=== PATIENT | male | born 1975 | race Caucasian/White ===

== ENCOUNTER 2018-04-16 14:49 | Emergency (ER) | payer OTHER ==
[~2018-04-16] VITALS: Ht 185.4 cm; Wt 103.4 kg
[2018-04-16 14:50] VITALS: BP_SYST 129
[2018-04-16 16:25] VITALS: BP_SYST 124
== END 2018-04-16 16:25 | disposition home or self-care (01) ==
LOC: SED 14:49
DX: S16.1XXA Strain of muscle, fascia and tendon at neck level, initial encounter (principal); S09.90XA Unspecified injury of head, initial encounter; F17.210 Nicotine dependence, cigarettes, uncomplicated; R03.0 Elevated blood-pressure reading, without diagnosis of hypertension; Z90.89 Acquired absence of other organs; V43.52XA Car driver injured in collision with other type car in traffic accident, initial encounter; Y93.89 Activity, other specified; Y92.488 Other paved roadways as the place of occurrence of the external cause; Y99.8 Other external cause status
CPT/HCPCS: 70450-TC; 72125-TC; 99284

== ENCOUNTER 2022-08-11 21:20 | Emergency (ER) | payer BC, OTHER ==
[~2022-08-11] VITALS: Ht 182.9 cm; Wt 124.3 kg
[2022-08-11 21:31] VITALS: BP_SYST 124
[2022-08-11] MEDS ORDERED: NACL 0.9% 1,000 ML IV ONE (21:45)
[2022-08-11 22:25] LABS: BASOPHILS # (AUTO) 0.1 K/uL (0.0-0.2); BASOPHILS % (AUTO) 0.8 % (0.0-2.0); EOSINOPHILS # (AUTO) 0.2 K/uL (0.0-0.4); EOSINOPHILS % (AUTO) 3.3 % (0.0-4.0); HEMOGLOBIN 14.1 g/dL (14.0-18.0); LYMPHOCYTES # (AUTO) 2.4 K/uL (1.0-5.5); LYMPHOCYTES % (AUTO) 30.9 % (20.5-51.5); MEAN CORPUSCULAR HEMOGLOBIN 31 pg (27-31); MEAN CORPUSCULAR HGB CONC 35 % (32-36); MEAN CORPUSCULAR VOLUME 88 fL (79.0-98.0); MONOCYTES # (AUTO) 0.8 K/uL (0.0-1.0); MONOCYTES % (AUTO) 9.9 % (1.7-9.3); NEUTROPHILS # (AUTO) 4.2 K/uL (1.8-7.7); NEUTROPHILS % (AUTO) 55.1 % (40.0-70.0); PLATELET COUNT (AUTO) 244 K/uL (130-430); RED BLOOD CELL COUNT(AUTO) 4.57 MIL/uL (4.2-6.2); RED CELL DISTRIBUTION WIDTH 13.2 % (9.0-15.0); WHITE BLOOD COUNT (AUTO) 7.6 K/uL (4.8-10.8)
[2022-08-11 22:47] LABS: CALCIUM 10.2 mg/dL (8.4-11.0); CREATININE 0.96 mg/dL (0.55-1.30)
[2022-08-11 23:01] LABS: FREE T4 (FREE THYROXINE) 1.1 ng/dl (0.8-1.5); PHOSPHORUS 3.8 mg/dL (2.7-4.5); THYROID STIMULATING HORMONE 1.39 uIu/mL (0.36-3.74); TOTAL BILIRUBIN 0.3 mg/dL (0.0-1.0)
[2022-08-12 00:59] LABS: BILIRUBIN,URINE NEGATIVE (NEGATIVE); BLOOD, URINE NEGATIVE (NEGATIVE); CLARITY/URINE CLEAR (CLEAR); COLOR,URINE YELLOW (YELLOW); GLUCOSE,URINE NEGATIVE (NEGATIVE); KETONES,URINE NEGATIVE (NEGATIVE); LEUKOCYTE ESTERASE ,URINE NEGATIVE (NEGATIVE); NITRITE, URINE NEGATIVE (NEGATIVE); PROTEIN URINE NEGATIVE (NEGATIVE); UROBILINOGEN,URINE 0.2 (0.2-1.0)
[2022-08-12 01:17] LABS: BARBITURATE, URINE NEGATIVE (NEG <=200); METHAMPHETAMINES SCREEN,URINE NEGATIVE (NEG <=500); URINE AMPHETAMINE NEGATIVE (NEG <=500); URINE METHADONE NEGATIVE (NEG <=200)
[2022-08-12 01:18] LABS: BENZODIAZEPINE, URINE NEGATIVE (NEG <=150); CANNABINOID, URINE NEGATIVE (NEG <=50); COCAINE, URINE NEGATIVE (NEG <=150); OPIATE, URINE NEGATIVE (NEG <=100); PHENCYCLIDINE SCREEN,URINE NEGATIVE (NEG <=25); UR TRICYCLIC ANTIDEPRESSANTS NEGATIVE (NEG <=300); URINE OXYCODONE SCREEN NEGATIVE (NEG <=100); URINE PROPOXYPHENE SCREEN NEGATIVE (NEG <=300)
[2022-08-12 03:14] VITALS: BP_SYST 139
== END 2022-08-12 03:14 | disposition home or self-care (01) ==
LOC: SED 21:20
DX: F11.23 Opioid dependence with withdrawal (principal); R53.1 Weakness; R20.2 Paresthesia of skin; R00.2 Palpitations; I10 Essential (primary) hypertension; Z79.899 Other long term (current) drug therapy; Z20.822 Contact with and (suspected) exposure to COVID-19
CPT/HCPCS: 99285; 96360; 71045; 87426; 80307; 80053; 83880; 84439; 83690; 83735; 84100; 84443; 85025; 85379; 87040; 84484; 36415; 93005; 83605; 87804 ×2; 81003; J7030

== ENCOUNTER 2023-01-06 07:13 | Emergency (ER) | payer BC ==
[~2023-01-06] VITALS: Ht 182.9 cm; Wt 99.8 kg
--- NOTE | 2023-01-06 07:24 | NUR ---
Patient to ER bed 03 to gown for evaluation. Side rails up.
[2023-01-06 07:25] VITALS: BP_SYST 138; BP_SYST 152
--- NOTE | 2023-01-06 07:25 | NUR ---
ER DR. MINOR EXAMINING PT
[2023-01-06] MEDS ORDERED: EPINEPHRINE HCL/PF 1 MG/ML AMP IM ONE (07:30)
[2023-01-06] MEDS ORDERED: CLON0.2T PO (08:20)
[2023-01-06] MEDS ORDERED: DIPH25CA83 PO (08:20)
[2023-01-06] MEDS ORDERED: PRED20TA PO (08:20)
[2023-01-06 08:35] VITALS: BP_SYST 135
--- NOTE | 2023-01-06 08:39 | NUR ---
Patient given written and verbal discharge instructions and verbalizes understanding. ER MD discussed with patient the results and treatment provided. Patient in stable condition. Rx of given. Patient educated on pain management and to follow up with PMD. Pain Scale [0]. Opportunity for questions provided and answered. Medication side effect fact sheet provided.
[2023-01-07] MEDS ORDERED: MED4 PO ×2 (01:40→02:19)
[2023-01-07] MEDS ORDERED: AUG875 PO ×2 (01:40→02:19)
== END 2023-01-06 08:39 | disposition home or self-care (01) ==
LOC: SED 07:13
DX: T78.3XXA Angioneurotic edema, initial encounter (principal); J02.9 Acute pharyngitis, unspecified; I10 Essential (primary) hypertension; Z79.899 Other long term (current) drug therapy
CPT/HCPCS: 99283; 96372; J0171

== ENCOUNTER 2023-01-07 00:08 | Emergency (ER) | payer BC ==
[~2023-01-07] VITALS: Ht 182.9 cm; Wt 129.3 kg
[~2023-01-07 00:08] MED LIST: CLON0.2T PO; DIPH25CA83 PO; PRED20TA PO
[2023-01-07 00:32] VITALS: BP_SYST 128
--- NOTE | 2023-01-07 00:32 | NUR ---
Triaged and placed patient in ER bed 8 for evaluation. Report given to Joyce FORBES for continuity of care. VSS, no acute respiratory distress noted at this time. Instructed to notify ED staff for any changes in condition or worsening of symptoms. Patient verbalized understanding.
--- NOTE | 2023-01-07 00:35 | NUR ---
Pt is noted alert, responsive as he came in C/O Swollen [place]vula that started this AM . Pt care continue as awaits MD orders.
--- NOTE | 2023-01-07 00:39 | NUR ---
Dr. Rojas is at bedside examining the patient.
[2023-01-07] MEDS ORDERED: methylPREDNISolone SOD SUCC/PF 62.5 MG/ML VIAL IVP ONE (00:45)
--- NOTE | 2023-01-07 01:25 | NUR ---
Pt is noted off the unit to Ct for Ct off the head. Pt care continue.
[2023-01-07] MEDS ORDERED: MED4 PO ×2 (01:40→02:19)
[2023-01-07] MEDS ORDERED: AUG875 PO ×2 (01:40→02:19)
--- NOTE | 2023-01-07 01:41 | NUR ---
Pt is noted back from CT. Pt continue.
[2023-01-07] MEDS ORDERED: AMPICILLIN SODIUM/SULBACTAM NA 3 GM in NS 100 ML IV ONE (01:45)
[2023-01-07] MEDS ORDERED: AMPICILLIN SODIUM/SULBACTAM NA 3 GM VIAL ONE (02:09)
[2023-01-07 02:40] VITALS: BP_SYST 138
--- NOTE | 2023-01-07 02:41 | NUR ---
Pt is noted off the unit with at his side after been discharge to Home with all discharge instructions given aftrer Ampicillin 3mg IVPB given as ordered, also Pt received 125mg IVP off Solu=Medrol earlier .
== END 2023-01-07 02:38 | disposition home or self-care (01) ==
LOC: SED 00:08
DX: K12.2 Cellulitis and abscess of mouth (principal); I10 Essential (primary) hypertension; Z79.899 Other long term (current) drug therapy
CPT/HCPCS: 99285; 96365; 70490; 96375; 76376; J0295; J2930